=== PATIENT | male | born 1990 | race Caucasian/White ===

== ENCOUNTER 2020-04-13 19:11 | Emergency (ER) | payer SELFPAY ==
[2020-04-13 19:18] VITALS: BP 133/89; RESP 20; TEMP 36.8; O2SAT 96; BMI 30.1
--- NOTE | 2020-04-13 19:30 | W.ED.ALLEREA ---
HPI - Allergic Reaction General: Chief complaint: Allergic Reaction Stated complaint: HEADACHE Time Seen by Provider: 04/13/20 19:20 Source: patient and EMS Mode of arrival: EMS Limitations: no limitations History of Present Illness: HPI narrative: 30-year-old male who states he was eating crab and started to have a flushed feeling in his face along with some swelling and a rash. He states he got slightly short of breath as well. He states this lasted roughly 30 minutes and has been improving. Patient brought in by ambulance and did not receive anything. He states that he has no more breathing issues and no more headache. He does have a urticarial rash to his abdomen and trunk at this time. He denies any allergic reactions in the past. MD complaint: allergic reaction and hives Onset (ago): minute(s) Exposure: food Associated symptoms: Deny abdominal pain, nausea or vomiting Treatment prior to arrival: none Previous Allergic Reaction History: none Review of Systems Const: Denies: fever(s), chills, body aches or change in appetite Eyes: Denies: blurry vision or eye discomfort ENMT: Denies: throat pain or dental pain Card: Denies: chest pain Resp: Denies: dyspnea GI: Denies: abdominal pain, nausea, vomiting or diarrhea : Denies: dysuria Musc: Denies: neck pain or back pain Skin/Breast: Reports: rash Neuro: Reports: headache(s) Psych: Denies: depression Darci/Lymph: Denies: easy bruising All/Imm: Denies: urticaria Physical Exam Const: COMMON NORMALS: no acute distress, patient oriented x3 and healthy appearing HENMT: COMMON NORMALS: normocephalic and atraumatic HEAD & SCALP: normocephalic and atraumatic Eye: COMMON NORMALS: Equal, round and reactive pupils present and EOMs intact bilaterally PUPIL: Yes Equal, round and reactive pupils present Neck/C-Spine: COMMON NORMALS: full ROM and supple Chest: COMMONS NORMALS: normal inspection of the chest and normal palpation of entire chest wall Resp: COMMON NORMALS: normal respiratory effort, No retractions, No use of accessory muscles and clear to auscultation bilaterally AUSCULTATION: clear to auscultation bilaterally Cardio: COMMON NORMALS: regular rate, regular rhythm and No murmurs present (Cardio) RATE: regular rate RHYTHM: regular rhythm GI: COMMON NORMALS: Normal to inspection, nondistended, normoactive bowel sounds present, Soft to palpation, non-tender and no masses PALPATION: Yes Soft to palpation Extremity: COMMON NORMALS: normal to inspection and full ROM Neuro: COMMON NORMALS: patient oriented x3, moves all extremities and no focal motor deficits Psych: COMMON NORMALS: mental status grossly normal, Normal thought process present and cooperative THOUGHT PROCESS: Normal thought process present Skin: COMMON NORMALS: no wounds NARRATIVE SKIN EXAM: Urticarial rash to trunk Course Vital Signs: Vital signs: Vital Signs Temperature 98.2 F 04/13/20 19:18 Respiratory Rate 20 H 04/13/20 19:18 Blood Pressure 133/89 04/13/20 19:18 Pulse Oximetry 96 04/13/20 19:18 MDM - Allergic Reaction MDM Narrative: Medical decision making narrative: Patient presents here with allergic reaction with urticaria. Patient feels much improved after Benadryl and steroids and his rash is resolved. Patient is to void what he was eating and will prescribe an EpiPen. He is to follow-up with primary care doctor in 3 to 5 days and return if worsening. 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
[2020-04-13] MEDS: famotidine 20 mg/2 mL INJ 40 MG IVP (19:33)
[2020-04-13] MEDS: diphenhydrAMINE 50 mg/mL SDV 1mL IVP (19:33)
[2020-04-13 21:10] VITALS: BP 129/91; PULSE 90; RESP 19; O2SAT 97
== END 2020-04-13 21:12 | disposition home or self-care (01) ==
PROVIDERS: Emergency Provider Emergency Medicine
DX: T78.40XA Allergy, unspecified, initial encounter (principal)
CPT/HCPCS: 12345; 96374; 96375; 99282; 99283; J1200; J2930; J3490

== ENCOUNTER 2023-11-01 06:18 | Emergency (ER) | payer BC, SELFPAY ==
[2023-11-01 06:21] VITALS: BP 149/98; PULSE 74; RESP 16; TEMP 36.9; O2SAT 98
--- NOTE | 2023-11-01 06:45 | W.ED.EXTPRO ---
HPI - Extremity Problem General: Chief complaint: Extremity Injury, Lower Stated complaint: right leg swollen Time Seen by Provider: 11/01/23 06:27 Source: patient Mode of arrival: ambulatory History of Present Illness: 33-year-old male presents emergency room with complaints of pain in the right lateral thigh. This began over the last 4 to 5 days. 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 He has a sensation that the leg is swollen over the upper thigh. He does not have any pain radiating out of the back he is not had any fecal incontinence or urinary retention. No trauma. He does state that over the last week he has been wearing tighter jeans with a belt whereas normally he wears loosefitting shorts. MD Complaint: extremity pain Onset (ago): day(s) Pain Consistency: constant Location: right and lower extremity Quality: burning and aching Radiation: distal Associated symptoms: Deny arthralgias, chest pain, fever(s), myalgias, rash or short of breath Review of Systems Const: Denies: fever(s) or chills Card: Denies: chest pain Resp: Denies: dyspnea GI: Denies: abdominal pain : Denies: dysuria, urinary frequency or urinary urgency Musc: Denies: neck pain or back pain Skin/Breast: Denies: rash Physical Exam Const: COMMON NORMALS: no acute distress GENERAL APPEARANCE: cooperative and comfortable ORIENTATION/CONSCIOUSNESS: Yes awake, Yes oriented to person, Yes oriented to place and Yes oriented to time HENMT: COMMON NORMALS: normocephalic, atraumatic and hearing grossly normal bilaterally HEAD & SCALP: normocephalic and atraumatic Extremity: COMMON NORMALS: normal to inspection, capillary refill normal, no clubbing, cyanosis or edema, no calf tenderness and no pedal edema OTHER: Deep tendon reflexes in the lower extremities +2 for the patellar tendon dorsum plantar flex strength 5 5 sensation lower extremities is normal. Strength 5 of 5 throughout the lower extremities. Loss of sensation in the lateral thigh consistent with distribution of the lateral femoral cutaneous nerve on the right Neuro: SENSORIUM/ORIENTATION: Yes oriented to person, Yes oriented to place and Yes oriented to time Skin: COMMON NORMALS: no rashes or lesions noted GENERAL SKIN EXAM: no rashes or lesions noted Course Vital Signs: Vital signs: Vital Signs Temperature 98.5 F 11/01/23 06:21 Pulse Rate 74 11/01/23 06:21 Respiratory Rate 16 11/01/23 06:21 Blood Pressure 149/98 11/01/23 06:21 Pulse Oximetry 98 11/01/23 06:21 Oxygen Delivery Me thod Room Air 11/01/23 06:21 MDM - Extremity (Nontraumatic) Medical Decision Making No recent trauma. Imaging not likely to be helpful. No sign of cellulitis no sign of zoster no sign of DVT will review of the lateral femoral cutaneous nerve syndrome no signs of nerve impingement in his back at this point. Will start him on steroids can use tramadol as needed ibuprofen or Tylenol as needed if not improving can follow-up with his primary care doctor for further evaluation including possible EMG or advanced imaging if felt appropriate Differential Diagnosis Likely herpes zoster, cellulitis, superficial thrombophlebitis, lower extremity edema and deep vein thrombosis of lower extremity Medical Records I reviewed the patient's medical records. No radiology studies performed this visit Discharge Plan Discharge Patient Disposition: Home Clinical Impression: Lateral femoral cutaneous neuropathy Condition: Stable Prescriptions: New prednisone 20 mg tablet 20 mg PO TID Qty: 15 0RF Rx Instructions: 1 p.o. 3 times daily x3 days, 1 p.o. twice daily x2 days, 1 p.o. daily x2 days tramadol 50 mg tablet 50 mg PO Q6H PRN (Reason: pain) Qty: 10 0RF No Action EpiPen 0.3 mg/0.3 mL auto-injector 0.3 mg IM Q10M PRN (Reason: anaphylaxis) Qty: 2 0RF Rx Instructions: for 2 doses Discharge Orders: Discharge ED (Routine); Ordered 11/01/23 Ordered By: Meño Grubbs Discharge Diet: Usual diet Discharge Activity: Increase activity as tolerated Patient Instructions: Opioid Safety, Pain Management Activity Restrictions/Additional Instructions: Thank you for choosing [facility] for your healthcare needs today. Please realize this is an emergency room and that we are providing you with a medical screening exam and this may not be complete and all inclusive of all the testing and or work up that you may need to determine your ailment or severity of your illness. It is very important that you follow up as instructed or that you return to the Emergency Department should you have concerns or if your condition changes or worsens in any way. Coding Level of Care Code ED Cloth Spreader Screen Printing for Sandra Ordonez
[2023-11-01] MEDS: ketorolac 30 mg/mL INJ 60 MG IM (06:50)
[2023-11-01 06:51] VITALS: BP 137/112; PULSE 65; RESP 18; O2SAT 98
== END 2023-11-01 06:53 | disposition home or self-care (01) ==
PROVIDERS: Emergency Provider Family Medicine
DX: G57.21 Lesion of femoral nerve, right lower limb (principal)
CPT/HCPCS: 96372; 99284; J1885

== ENCOUNTER 2024-11-11 17:38 | Emergency (ER) | payer BC, SELFPAY ==
[2024-11-11 17:44] VITALS: BP 152/101; PULSE 80; RESP 16; TEMP 36.8; O2SAT 97; BMI 27.2
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
[2024-11-11 17:55] LABS: Basophils # 0.1 10^3/uL (0.0-0.1); Basophils % 0.5 %; Eosinophils # 0.5 10^3/uL (0.0-0.8); Eosinophils % 4.1 %; Lymphocytes # 3.5 10^3/uL (0.8-4.8); Lymphocytes % 29.4 %; Mean Corpuscular HGB Conc 35.2 g/dL (30-55); Mean Corpuscular Volume 93.8 fl (82-101); Mean Platelet Volume 9.7 fL (7.4-10.4); Monocytes # 1.1 10^3/uL (0.2-0.9); Monocytes % 8.7 %; Neutrophils # 6.89 10^3/uL (1.8-7.7); Neutrophils % 57.1 %; Nucleated Red Blood Cells % 0 %; Platelet Count 220 10^3/cmm (157-399); Red Blood Count 4.48 10^6/uL (3.85-5.65); Red Cell Distribution Width 12.2 % (12.1-15.1); White Blood Count 12.06 10^3/uL (3.29-11.43)
[2024-11-11 18:14] LABS: Alanine Aminotransferase 19 U/L (0-41); Albumin Level 4.4 g/dL (3.5-5.2); Alcohol Level 133 mg/dL (0-10); Alkaline Phosphatase 89 U/L (40-130); Anion Gap 21.3 (5-19); Aspartate Amino Transferase 21 U/L (0-40); Blood Urea Nitrogen 13 mg/dL (6-20); Calcium 8.7 mg/dL (8.5-10.5); Carbon Dioxide 22 mmol/L (22-29); Chloride 101 mmol/L (98-107); Creatinine Clr Calc Pharmacy 114.1484; Globulin 2.8 g/dL (1.3-4.6); Glucose 123 mg/dL (65-115); Osmolality Calculated 293 mOsm/kg (285-295); Potassium 3.3 mmol/L (3.5-5.1); Sodium 141 mmol/L (136-145); Total Bilirubin 0.2 mg/dL (0.15-1.2); Total Protein 7.2 g/dL (6.6-8.7)
[2024-11-11 18:22] VITALS: BP 180/109; PULSE 76; RESP 16; O2SAT 97
[2024-11-11] MEDS: iohexol 350 mg/mL 500 mL Btl (per mL) IV (18:32)
[2024-11-11 18:43] VITALS: BP 163/99; PULSE 80; RESP 16; O2SAT 96
[2024-11-11 19:05] VITALS: BP 177/108; PULSE 78; RESP 16; O2SAT 97
[2024-11-11 19:19] LABS: Amphetamines Screen Urine Negative (Negative); Barbiturates Screen Urine Negative (Negative); Benzodiazepines Screen Urine Negative (Negative); Cocaine Screen Urine Negative (Negative); Opiate Screen Urine Negative (Negative); PCP Screen Urine Negative (Negative); THC Screen Urine Positive (Negative)
[2024-11-11 19:30] VITALS: BP 154/117; PULSE 70; RESP 16; O2SAT 96
[2024-11-11 19:42] VITALS: BP 154/117; PULSE 70; RESP 16; O2SAT 97
[2024-11-11] MEDS: ketorolac 30 mg/mL INJ IVP (19:47)
== END 2024-11-11 19:49 | disposition home or self-care (01) ==
PROVIDERS: Emergency Provider Physician Assistant
DX: S00.81XA Abrasion of other part of head, initial encounter (principal); S80.211A Abrasion, right knee, initial encounter; S60.511A Abrasion of right hand, initial encounter; S60.512A Abrasion of left hand, initial encounter; S00.03XA Contusion of scalp, initial encounter; V89.2XXA Person injured in unspecified motor-vehicle accident, traffic, initial encounter; F10.920 Alcohol use, unspecified with intoxication, uncomplicated; Y90.6 Blood alcohol level of 120-199 mg/100 ml
CPT/HCPCS: 36415; 70450; 70486; 71260; 72125; 73130; 73562; 74177; 80053; 80306; 80307; 85025; 96374; 99285; J1885